=== PATIENT | male | born 1970 | race Two or more races ===

== ENCOUNTER 2019-03-01 07:35 | Inpatient (IN) | payer MEDICAID ==
[2019-03-01] MEDS ORDERED: OLANZapine DISINTEGR 5 MG TAB PO ONE (07:42)
--- NOTE | 2019-03-01 07:45 | EDPHY ---
H & P Time Seen by Provider: 03/01/19 07:38 HPI/ROS: CHIEF COMPLAINT: Paranoia HISTORY OF PRESENT ILLNESS: Patient is a 48-year-old homeless schizophrenic man who called an ambulance this morning because he was having racing thoughts. He felt like everybody was after him trying to harm him. He states that he is hearing voices. He states that he is supposed to take Haldol but has not taken it for the last day or 2. He did use methamphetamine and alcohol yesterday. He denies recent injury or trauma. He denies recent fevers or illness. No GI symptoms. He has been cooperative with EMS. Severity: Moderate Modifying factors: None REVIEW OF SYSTEMS: Constitutional: denies: chills, fever, recent illness, recent injury EENTM: denies: blurred vision, double vision, nose congestion Respiratory: denies: cough, shortness of breath Cardiac: denies: chest pain, irregular heart rate, lightheadedness, palpitations Gastrointestinal/Abdominal: denies: abdominal pain, diarrhea, nausea, vomiting, blood streaked stools Genitourinary: denies: dysuria, frequency, hematuria, pain Musculoskeletal: denies: joint pain, muscle pain Skin: denies: lesions, rash, jaundice, bruising Neurological: See HPI denies: headache, numbness, paresthesia, tingling, dizziness, weakness Hematologic/Lymphatic: denies: blood clots, easy bleeding, easy bruising Immunologic/allergic: denies: HIV/AIDS, transplant 10 systems reviewed and negative except as noted EXAM: GENERAL: Well-appearing, overweight and in moderate distress. HEAD: Atraumatic, normocephalic. EYES: Pupils equal round and reactive to light, extraocular movements intact, sclera anicteric, conjunctiva are normal. ENT: TMs normal, nares patent, oropharynx clear without exudates. Moist mucous membranes. NECK: Normal range of motion, supple without lymphadenopathy or JVD. LUNGS: Breath sounds clear to auscultation bilaterally and equal. No wheezes rales or rhonchi. HEART: Regular rate and rhythm without murmurs, rubs or gallops. ABDOMEN: Soft, nontender, normoactive bowel sounds. No guarding, no rebound. No masses appreciated. BACK: No CVA tenderness, no spinal tenderness, step-offs or deformities EXTREMITIES: Normal range of motion, no pitting or edema. No clubbing or cyanosis. NEUROLOGICAL: Cranial nerves II through XII grossly intact. Normal speech, normal gait. 5/5 strength, normal movement in all extremities, normal sensation , normal reflexes PSYCH: Normal rate of speech, paranoia, anxious SKIN: Warm, dry, normal turgor, no visible rashes or lesions. Source: Patient Exam Limitations: No limitations - Medical/Surgical History Hx Asthma: No Hx Chronic Respiratory Disease: No Hx Diabetes: No Hx Cardiac Disease: No Hx Renal Disease: No Hx Cirrhosis: No Hx Alcoholism: No Hx HIV/AIDS: No Other PMH: Schizophrenia, homelessness - Family History Significant Family History: No pertinent family hx - Social History Alcohol Use: Occasionally Drug Use: Other Constitutional: Initial Vital Signs Temperature (C) 37.3 C 03/01/19 07:35 Heart Rate 110 H 03/01/19 07:35 Respiratory Rate 18 03/01/19 07:35 Blood Pressure 160/105 H 03/01/19 07:35 O2 Sat (%) 91 L 03/01/19 07:35 O2 Delivery Mode Room Air Allergies/Adverse Reactions: No Known Allergies Allergy (Verified 03/01/19 13:58) Home Medications: Medication Instructions Recorded Meloxicam 15 mg PO DAILY 03/01/19 buPROPion XL [Wellbutrin Xl] 150 mg PO DAILY 03/01/19 Medical Decision Making ED Course/Re-evaluation: 11:00 a.m. the patient is medically clear. Awaiting psychiatric evaluation. 11:40 a.m. patient accepted to [facility] by nurse practitioner Willam. They are requesting Haldol. Differential Diagnosis: Partial list of the Differential diagnosis considered include but were not limited to; schizophrenia, polysubstance abuse and although unlikely based on the history and physical exam, I also considered head injury, infection. - Data Points Laboratory Results: Laboratory Results 03/01/19 07:58 03/01/19 07:58 03/01/19 03/01/19 03/01/19 07:58 07:58 07:42 WBC 7.57 10^3/uL 10^3/uL (3.80-9.50) RBC 5.04 10^6/uL 10^6/uL (4.40-6.38) Hgb 14.3 g/dL g/dL (13.7-17.5) Hct 42.1 % % (40.0-51.0) MCV 83.5 fL fL (81.5-99.8) MCH 28.4 pg pg (27.9-34.1) MCHC 34.0 g/dL g/dL (32.4-36.7) RDW 15.0 % % (11.5-15.2) Plt Count 164 10^3/uL 10^3/uL (150-400) MPV 10.2 fL fL (8.7-11.7) Neut % (Auto) 67.5 % % (39.3-74.2) Lymph % (Auto) 22.3 % % (15.0-45.0) Bartholomew % (Auto) 8.6 % % (4.5-13.0) Eos % (Auto) 0.3 % L % (0.6-7.6) Baso % (Auto) 0.8 % % (0.3-1.7) Nucleat RBC Rel Count 0.0 % % (0.0-0.2) Absolute Neuts (auto) 5.11 10^3/uL 10^3/uL (1.70-6.50) Absolute Lymphs (auto) 1.69 10^3/uL 10^3/uL (1.00-3.00) Absolute Monos (auto) 0.65 10^3/uL 10^3/uL (0.30-0.80) Absolute Eos (auto) 0.02 10^3/uL L 10^3/uL (0.03-0.40) Absolute Basos (auto) 0.06 10^3/uL 10^3/uL (0.02-0.10) Absolute Nucleated RBC 0.00 10^3/uL 10^3/uL (0-0.01) Immature Gran % 0.5 % % (0.0-1.1) Immature Gran # 0.04 10^3/uL 10^3/uL (0.00-0.10) Sodium 141 mEq/L mEq/L (135-145) Potassium 3.9 mEq/L mEq/L (3.5-5.2) Chloride 110 mEq/L mEq/L (97-110) Carbon Dioxide 20 mEq/l L mEq/l (22-31) Anion Gap 11 mEq/L mEq/L (6-14) BUN 10 mg/dL mg/dL (7-23) Creatinine 0.7 mg/dL mg/dL (0.7-1.3) Estimated GFR > 60 Glucose 108 mg/dL H mg/dL (70-100) Calcium 8.8 mg/dL mg/dL (8.5-10.4) Urine Opiates Screen NEGATIVE (NEGATIVE) Urine Barbiturates NEGATIVE (NEGATIVE) Ur Phencyclidine Scrn NEGATIVE (NEGATIVE) Ur Amphetamine Screen NEGATIVE (NEGATIVE) U Benzodiazepines Scrn NEGATIVE (NEGATIVE) Urine Cocaine Screen NEGATIVE (NEGATIVE) U Marijuana (THC) Screen NEGATIVE (NEGATIVE) Ethyl Alcohol < 10 mg/dL mg/dL (0-10) Medications Given: Discontinued Medications Haloperidol (Haldol) 10 mg PO ONCE ONE Stop: 03/01/19 11:37 Last Admin: 03/01/19 13:00 Dose: 10 mg Lorazepam (Ativan) 2 mg PO EDNOW ONE Stop: 03/01/19 11:38 Last Admin: 03/01/19 12:34 Dose: 2 mg Olanzapine (Zyprexa Zydis) 5 mg PO EDNOW ONE Stop: 03/01/19 07:43 Last Admin: 03/01/19 08:05 Dose: 5 mg Departure - Departure Disposition: [facility] IP Clinical Impression: Acute psychosis Condition: Fair
[2019-03-01 08:04] LABS: PLATELET COUNT 164 10^3/uL (150-400)
[2019-03-01] MEDS ORDERED: HALOPERIDOL 10 MG TAB PO ONE (11:36)
[2019-03-01] MEDS ORDERED: LORazepam 1 MG TAB PO ONE (11:37)
--- NOTE | 2019-03-01 12:46 | PDCONSULT ---
[employer] Note: THIS IS A HOSPITALIST HISTORY AND PHYSICAL CC: Suicidal ideation HPI: 48-year-old homeless male with history of schizophrenia presents to the emergency room after calling an ambulance for himself due to racing thoughts. He feels as though everyone was after him trying to harm him and he too feels like he could harm himself however he does not have a plan. He was to be on Haldol but has not taken this medication for 2 days. He is from [place] and reportedly left his psychiatric medications in [place]. In mid January he presented to [facility] with similar symptoms of paranoia and worsening auditory hallucinations. He was most recently seen in [facility] ED and discharged w/ recommendation to follow up with psychiatrist and/or primary care provider; he was discharged with Wellbutrin, Cymbalta, gabapentin and Haldol. He last used crystal methamphetamine and alcohol yesterday. He denies the following: Chest pain, palpitations, nausea, shortness of breath, fever, chills , constipation or diarrhea. PMH/PSH: Schizophrenia, anxiety, depression, liver cirrhosis, hepatitis-C Social: Homeless, currently visiting [employer] for 3 weeks from [place], [place]. 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 Smokes cannabis and crystal methamphetamine whenever he can get a hold of it, smokes cigarettes whenever he can get a hold of it (but refuses the need for a nicotine patch while here) and drinks alcohol 3-4 beers a day. Family: Mother had depression Review of Systems: All systems negative unless noted in HPI Physical Exam: Constitutional: "I need help." Mildly distressed cooperative male HEENT: PERRLA, EOMI, moist mucous membrane, hearing normal Cardiovascular: s1, s2 heard w/no murmurs, gallops or rubs Respiratory: CTAB GI: Active BS, no abdominal tenderness or palpable masses : No bladder fullness or tenderness Musculoskeletal: Full ROM, no pain w/movement Neurovascular: A&Ox3, PA[employer]MENT [employer]ER 2-12 intact Psych: Anxious, paranoia, normal speech Skin: Warm, no noted abrasions or rashes Heme/Lymph: No cervical lymphadenopathy Lab data was reviewed. White blood cell count 7.57, hemoglobin and hematocrit 14.3 and 42.1, platelet count 164, sodium 141, potassium 3.9, chloride 110, carbon dioxide 20, BUN/Cr: 10/0.7, tox screen negative, ETOH less than 10. A/P: 48-year-old homeless male with history of bipolar and schizophrenia presenting to the emergency room voluntarily with paranoia and worsening auditory hallucinations; he believes everyone is trying to harm him and he too believes he could harm himself however he does not have a plan. Reportedly left his psychiatric medications back in [place] where he plans to go back to after receiving appropriate care and being discharged from [facility]. He received the following medications while presenting to [facility] Emergency Room on February 23: Gabapentin, Haldol, Wellbutrin and trazodone but has not taken his Haldol for the last 2 days. His vital signs presenting to the emergency room are the following: Blood pressure 160/105, heart rate 110, respirations 18 , temperature 37.3 degrees, oxygen saturation on room air 91%. No medical concerns inhibiting pt to transfer to [facility]. #Paranoia/suicidal ideation: Transfer to [facility] for behavioral intervention assistance #Hypertension 2/2 acute paranoia and anxiety: No cardiac hx, asymptomatic. BP during [facility] visit was within normal range. Cont to monitor. If continuously elevated, would consider PRN hydralazine PO. #Tobacco/etoh/illicit drug cessation: Hx of cirrhosis and Hep C; counseled pt on cessation.
--- NOTE | 2019-03-01 13:04 | ASMTTCLDSP ---
[facility] Discharge Disposition Disposition: Answers: Admit Disposition Notes: Notes: Admit to [facility] Discharge Concerns/Recommendations: Notes: In consultation with [facility] ED physician, Grover Noguera MD and on-call psychiatric nurse practitioner, Clif Quarles APN, both concurred that pt appears to meet 27-65 criteria requiring psychiatric hospitalization as pt appears to be at risk of harm to self/gravely disabled due to a mental illness condition. Pt was read the Patient Rights and Responsibilities Statement on 03/01/19 at 1200 hrs, original placed on chart, and pt was given photocopy of Rights. Pt signed the Patient Rights. Pt was given the [facility] prohibited belongings list while in the ED. Was patient given the Answers: Yes Inpatient Behavioral Health Prohibited Belongings List while in the ED? For inpatient Clif Quarles APN admission, the following psychiatrist agreed to accept patient for admission to Behavioral Health ([facility]): Type of Hold: Answers: M1/72-hour Hold Hold initiated by: Answers: ED Physician Date Signed: 03/01/2019 01:04 PM Electronically Signed By:Teto Colon
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
[2019-03-01] MEDS ORDERED: MAGNESIUM HYDROXIDE 30 ML UDCUP PO PRN (14:47)
[2019-03-01] MEDS ORDERED: ACETAMINOPHEN 325 MG TAB PO PRN (14:47)
[2019-03-01] MEDS ORDERED: MAG HYDROX/AL HYDROX/SIMETH 30 ML UDCUP PO PRN (14:47)
[2019-03-01] MEDS ORDERED: OLANZapine DISINTEGR 10 MG TAB PO PRN (14:47)
[2019-03-01] MEDS ORDERED: NICOTINE POLACRILEX 2 MG GUM B PRN (14:47)
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
[2019-03-02] MEDS: LORazepam 0.5 MG TAB PO PRN ×2 (09:43→16:19)
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
[2019-03-02] MEDS: OLANZapine DISINTEGR 10 MG TAB PO SCH (20:41)
--- NOTE | 2019-03-03 18:01 | SOAPPROG ---
SOAP Progress Note Assessment/Plan: Assessment: 48-year-old homeless male with history of schizophrenia presents to the emergency room after calling an ambulance for himself due to racing thoughts. He feels as though everyone was after him trying to harm him and he too feels like he could harm himself however he does not have a plan. He was to be on Haldol but has not taken this medication for 2 days. He is from [place] and reportedly left his psychiatric medications in [place]. In mid January he presented to [facility] with similar symptoms of paranoia and worsening auditory hallucinations. He was most recently seen in [facility] ED and discharged w/ recommendation to follow up with psychiatrist and/or primary care provider; he was discharged with Wellbutrin, Cymbalta, gabapentin and Haldol. He last used crystal methamphetamine and alcohol yesterday. WEEKEND PLAN: 03/03/19 17:51 1. Patient has had multiple evaluations by medical providers (including at [facility] ED, [facility] ED) recently. He was given prescriptions for Wellbutrin , Cymbalta, gabapentin and haldol but has not taken any medications for last 2 days. Instead, patient has chosen to use crystal meth and drink alcohol. He has been given referrals for outpatient providers in order to establish MH services in [place], but patient has not followed up with these referrals. Patient's behavior over past several days since arriving in [place] would indicate he is most interested in having a place to stay rather than in psychiatric care. MD does not observe any signs of psychosis while observing patient in milieu and during his interactions with staff. He is not responding to internal/external stimuli, he is not paranoid and does not have IOR or bizarre thoughts. He is calm, cooperative and acting appropriately. 2. The patient does not require acute psychiatric care. He should be referred to outpatient clinics in the community where he can continue to receive services including medication management, case management and therapy. So far, the patient has demonstrated no desire or motivation to receive these services despite telling providers at 2 other facilities this is what he wanted. Based on his previous behavior, it's unlikely patient will comply with recommendations from treatment team when he leaves hospital. MD has advised of risks and potential adverse effects from continuing to use meth and alcohol, particularly for patients who have h/o psychotic sxs and problems with mood. Patient acknowledges he understands the risks. 3. MD and CM both recommend patient go to [facility] upon discharge and request assistance with housing and medical care if he chooses to stay in [facility]. 4. Likely to d/c Tuesday or Tuesday. Subjective: Patient presents anxious about what's going to happen when he leaves hospital. He says, "I don't know what to do." MD and CM explain that patient can seek assistance through [facility] which helps homeless clients with drug abuse social worker, housing, medical referrals and outpatient appointments. Patient denies any SI/HI today. He does not endorse any AH/VH, and there are no indications of any psychosis. Objective: Vital Signs Temp Pulse Resp BP Pulse Ox 36.4 C 64 14 127/72 H 93 03/03/19 06:00 03/03/19 06:00 03/03/19 06:00 03/03/19 06:00 03/03/19 06:00 MSE: Affect: Calm, quiet Mood: Anxious about d/c TP: Goal-directed TC: Denies any SI/HI Insight/Judgment: Poor - Time Spent With Patient Time Spent With Patient: 15" - Pending Discharge Pending Discharge Within 24 Hours: Yes Pending Discharge Date: 03/04/19 (Possible d/c tomorrow) Pending Discharge Time: 11:00 ICD10 Worksheet Patient Problems: Problems Problem Status Onset Acute psychosis Acute
[2019-03-03] MEDS: OLANZapine DISINTEGR 10 MG TAB PO SCH (21:18)
--- NOTE | 2019-03-04 15:54 | ASMTBHDC ---
Notes Note: Notes: Pt. reports feeling "depressed, trying to get back on track with meds and see my therapist". Pt. reports meeting with "Kelsy Garcia" with [facility]. Pt. reports he has an appointment with [facility], but does not know when. Pt. reports he slept "pretty well". Pt. reports getting enough to eat and attending groups. Pt. reports "not completely on all my meds". CC asked about SI/HI, pt. stated "just the ones that want to hurt me". Pt. denied AVH. Pt. reports paranoia that he is "scared of other people". Pt. stated he is willing to stay voluntarily, but is "not sure how long". Pt. stated he does not know where he will go upon discharge. Pt. stated he had an appointment for [facility] to [facility] living, but was admitted to the hospital and not able to go to the appointment. Pt. presents in bed, eye closed, calm, vague answers at times, and mostly cooperative. Staff report pt. sleeping 8 hours, being medication compliant and withdrawn to his room. CC to reach out to [facility] liaison for follow up appointments Date Signed: 03/04/2019 03:53 PM Electronically Signed By:Izabel Pierson
--- NOTE | 2019-03-04 19:08 | SOAPPROG ---
SOAP Progress Note Assessment/Plan: Assessment: 48-year-old homeless male with history of schizophrenia presents to the emergency room after calling an ambulance for himself due to racing thoughts. He feels as though everyone was after him trying to harm him and he too feels like he could harm himself however he does not have a plan. He was to be on Haldol but has not taken this medication for 2 days. He is from [place] and reportedly left his psychiatric medications in [place]. In mid January he presented to [facility] with similar symptoms of paranoia and worsening auditory hallucinations. He was most recently seen in [facility] ED and discharged w/ recommendation to follow up with psychiatrist and/or primary care provider; he was discharged with Wellbutrin, Cymbalta, gabapentin and Haldol. He last used crystal methamphetamine and alcohol yesterday. WEEKEND PLAN: 03/03/19 17:51 1. Patient has had multiple evaluations by medical providers (including at [facility] ED, [facility] ED) recently. He was given prescriptions for Wellbutrin , Cymbalta, gabapentin and haldol but has not taken any medications for last 2 days. Instead, patient has chosen to use crystal meth and drink alcohol. He has been given referrals for outpatient providers in order to establish MH services in [place], but patient has not followed up with these referrals. Patient's behavior over past several days since arriving in [place] would indicate he is most interested in having a place to stay rather than in psychiatric care. MD does not observe any signs of psychosis while observing patient in milieu and during his interactions with staff. He is not responding to internal/external stimuli, he is not paranoid and does not have IOR or bizarre thoughts. He is calm, cooperative and acting appropriately. 2. The patient does not require acute psychiatric care. He should be referred to outpatient clinics in the community where he can continue to receive services including medication management, case management and therapy. So far, the patient has demonstrated no desire or motivation to receive these services despite telling providers at 2 other facilities this is what he wanted. Based on his previous behavior, it's unlikely patient will comply with recommendations from treatment team when he leaves hospital. MD has advised of risks and potential adverse effects from continuing to use meth and alcohol, particularly for patients who have h/o psychotic sxs and problems with mood. Patient acknowledges he understands the risks. 3. MD and CM both recommend patient go to [facility] upon discharge and request assistance with housing and medical care if he chooses to stay in [facility]. 4. Likely to d/c Tuesday or Tuesday. 03/04/19 19:04 1. Patient isolated in his room most of the day. 2. Patient said he did follow up with [facility] for a registration appointment. He supposedly has a case finishing machine adjuster, nicolasa Tierney. CM to confirm tomorrow. 3. Patient says he is willing to sign in voluntarily when his hold expires today. 4. MD recommends discharge tomorrow with f/u appt with his providers at [facility]. Subjective: Patient presents cooperative, pleasant, in no acute distress. He says he's in "bad shape" because he doesn't know "what to do" about his future. He perseverates on having no place to stay and no job. He is willing to go to [facility] and get assistance with housing and social science professor. He says he's already been referred there by other medical providers in recent weeks, but just hasn't gone. Patient wants to stay another night in hospital. He denies any SI/HI and reports no AH/VH. Objective: Vital Signs Temp Pulse Resp BP Pulse Ox 36.6 C 99 20 116/56 L 94 03/04/19 06:00 03/04/19 06:00 03/04/19 06:00 03/04/19 06:00 03/04/19 06:00 MSE: Affect: Euthymic Mood: "Don't know" TP: Linear, goal-directed TC: Denies any SI/HI, no paranoia Insight/Judgment: Fair - Time Spent With Patient Time Spent With Patient: 15" - Pending Discharge Pending Discharge Within 24 Hours: Yes Pending Discharge Within 48 Hours: No Pending Discharge Date: 03/05/19 (Likely d/c tomorrow) Pending Discharge Time: 11:00 ICD10 Worksheet Patient Problems: Problems Problem Status Onset Acute psychosis Acute
[2019-03-04] MEDS: OLANZapine DISINTEGR 10 MG TAB PO SCH (20:59)
[2019-03-05 06:52] VITALS: BP 111/71
--- NOTE | 2019-03-05 12:03 | BDS ---
[f rep st] BEHAVIORAL HEALTH DISCHARGE SUMMARY REASON FOR ADMISSION: From the ED note dated 03/01/2019, the patient presented to the emergency room with paranoid thoughts of everyone wanting to harm him. The patient reported auditory hallucinations. The patient reported nonadherence to psychiatric medications. The patient was admitted involuntarily and on an M1 hold due to being gravely disabled due to a mental illness. Patient was admitted for safety, crisis stabilization, and medication management. ADMITTING DIAGNOSES: 1. Schizophrenia. 2. Rule out substance-induced psychosis. 3. Homelessness. ADMISSION PHYSICAL EXAM: Patient was seen on 03/01/2019 for history and physical consultation for medical clearance for inpatient psychiatric hospitalization and treatment. The patient was medically cleared for inpatient psychiatric hospitalization and treatment. For further details, please refer to benefits consultant note dated 03/01/2019. ADMISSION LABS: 1. CBC within normal limits except eosinophils were low at 0.3, absolute eosinophils were low at 0.02. 2. BMP within normal limits except carbon dioxide was low at 20, glucose was elevated at 108. 3. Hemoglobin A1c was within normal limits at 5.1. 4. Liver function within normal limits except AST was elevated at 88, ALT elevated at 92, alkaline phosphatase elevated at 222, and total protein elevated at 8.3. Non-HDL cholesterol was low at 89. 5. Toxicology screen negative for all substances that were screened and negative for ethyl alcohol. MAJOR PROCEDURES OR TESTS: None. HOSPITAL COURSE: The most prominent symptoms and behaviors while the patient was here were reports of auditory hallucinations and the patient was socially withdrawn. Treatment modalities utilized were milieu and group therapy. Zyprexa Zydis 10 mg p.o. q.h.s. was started to target psychosis symptoms, was tolerated with no report of side effects and with good response. Patient has improved considerably with no signs of psychiatric symptoms and no psychiatric symptoms expressed. Patient reports he has improved since admission, states to be in stable condition, feels safe to discharge, and he contracts for safety. Patients response to treatment was good. There were no adverse or unexpected results of treatment. The patient was safe throughout stay, active in treatment , engaged in groups, and was appropriate with staff. Patient met with treatment team prior to discharge to assess readiness to discharge and review discharge plan. The treatment team consensus is the patient in stable condition , has a safe discharge plan, and is ready to discharge today. CONDITION AT DISCHARGE: Patient is in stable condition and is no longer a danger to self or others, and is not gravely disabled due to mental illness. Patient is no longer in need of inpatient level of care, and can be safely and effectively treated within the community. The patients level of risk at time of discharge is low. MSE: The patient is casually dressed and with good hygiene , and looks stated age. Patient is sitting, posture is upright, and position is relaxed. Patient appears awake, alert, and responds appropriately and reasonably during interview. Patient is engaged, relates well to interviewer, and emotional facial expression is appropriate to situation and changes appropriately with topic. Patient is cooperative, makes comfortable eye contact , and movements are voluntary, deliberate, coordinated, and smooth and even with no inappropriate movements. Patient makes laryngeal sounds effortlessly and shares conversation appropriately; pace of conversation is appropriate, and stream of talking is fluent; articulation is clear and understandable; word choice is effortless and appropriate for education level; completes sentences, occasionally pausing to think; rate and volume are appropriate for interview and setting. Patient reports mood as euthymic. Patients affect is stable with full variable range, congruent with mood, and appropriate to speech and circumstances. Patient has linear and logical thinking, with no loose associations, tangential thought, thought blocking, concrete thinking, or any other signs of formal thought disorder. Patient denies suicidal and homicidal ideation, and denies hallucinations and delusions. Patient appears to be a reliable historian with sound judgement and good insight into current condition. Patient has no apparent dysfunction in recent or remote memory noted , and no evidence of gross cognitive dysfunction noted at any point during the interview. DISCHARGE DIAGNOSES: 1. Schizophrenia. 2. Rule out substance-induced psychosis. 3. Homelessness. CURRENT MEDICATIONS: After reviewing options, risks, and benefits with the patient, patient agrees to continue Zyprexa 10 mg p.o. q.h.s. DISPOSITION: The patient left hospital independently and voluntarily with plans to go to the homeless senior living in [place], [place]. FOLLOWUP: sterile process coordinator reports the appropriate outpatient follow-up services have been established and outpatient appointments have been scheduled. The patient received written instructions with times and dates of outpatient follow-up appointments. The following follow-up recommendations were provided to the patient at discharge: Continue psychotropic medications as prescribed and attend appointments as scheduled. Report any side effects to a psychiatric outpatient provider, a primary care provider, or other health wound care physician. Address any questions or problems concerning the psychotropic medications with a psychiatric outpatient provider, a primary care provider, or other health wound care physician. Contact [facility] or [email or web address], or go to the nearest emergency room, if you are ever a danger to yourself/others, or unable to care for yourself. As soon as possible, establish a routine medication management treatment with a psychiatric provider, establish routine therapy appointments, and follow-up with a primary care provider. LEGAL COURSE: The patient was admitted on an M1 hold for involuntary inpatient psychiatric hospitalization and treatment. The patient was discharged today independently and voluntarily. ATTITUDE AT TIME OF DISCHARGE: The patients attitude was positive at time of discharge, and patient reports looking forward to discharging today. The patient reports he feels safe to discharge, is no longer a danger to himself or others, is in stable condition, and contracts for safety. Patient states he will continue medications as prescribed, and establish medication management treatment with an outpatient provider after discharge. Patient reports he understands the information that has been provided to him, and he understands, accepts, and agrees to psychotropic medications. Patient describes internal protective factors as the coping skills he has learned while hospitalized here, and he plans to continue to practice these coping skills after discharge. LABS AND RADIOLOGY STUDIES: There were no pending labs or studies at time of discharge. ADVANCE DIRECTIVES: There were no advance directives on file, and patient was full code during this hospitalization. The following psychotropic medication treatment informed consent and recommendations were provided to the patient at time of discharge. Patient reports he understands, accepts, and agrees to the information that has been provided. PSYCHOTROPIC MEDICATION TREATMENT INFORMED CONSENT and RECOMMENDATIONS: Review nature of condition, diagnosis, and prognosis. Review nature and purpose of psychotropic medication treatment. Review type of psychotropic medications being prescribed. Review risk and benefits of psychotropic medication treatment. Review probable length of time will need to take medications. Review risk and benefits of not undergoing psychotropic medication treatment. Review alternative treatments to psychotropic medications. Review psychotropic medications contraindications, side effects, and importance of reporting any side effects to a psychiatric provider, primary care provider, or other health wound care physician. Review importance of asking a psychiatric provider or primary care provider any questions or problems concerning the psychotropic medications. Review safety plan and the importance to contact [facility] or [employer] , or go to the nearest emergency room, if ever a danger to yourself/others, or unable to care for yourself. Recommend upon discharge to establish routine medication management treatment with a psychiatric provider, establish routine therapy appointments, and follow-up with a primary care provider. Verify patient understands, accepts, and agrees to the information that has been provided. /[id number]/MODL MTDD
== END 2019-03-05 13:15 | disposition home or self-care (01) | DRG 750 ==
LOC: BBEH 14:05
PROVIDERS: ADMIT Registered Nurse; ATTEND Psychiatry & Neurology Psychiatry
DX: F20.9 Schizophrenia, unspecified (principal); F10.959 Alcohol use, unspecified with alcohol-induced psychotic disorder, unspecified; F15.959 Other stimulant use, unspecified with stimulant-induced psychotic disorder, unspecified; Z59.0 Homelessness
CPT/HCPCS: 80305; G0480

== ENCOUNTER 2019-03-10 18:07 | Inpatient (IN) | payer MEDICAID ==
--- NOTE | 2019-03-10 18:14 | EDPHY ---
H & P Time Seen by Provider: 03/10/19 18:07 HPI/ROS: CHIEF COMPLAINT: Chest pain, an overdose HISTORY OF PRESENT ILLNESS: EMS initially was called for chest pain. Patient denies chest pain on arrival. Apparently as they were evaluating him he said he had taken overdose for depression because his mother recently , and became somnolent on the way in. Arrives emergent. Patient says he does not have chest pain now. No associated symptoms such as diaphoresis nausea or radiation. Denies cough or shortness of breath. REVIEW OF SYSTEMS: Eye: no change in vision ENT: no sore throat Cardiac: HPI Pulmonary: no cough or SOB Abdomen: no vomiting, diarrhea, abdominal pain Musculoskeletal: no back pain Skin: no rash Neuro: no headache Constitutional: no fever : no urinary symptoms A comprehensive 10 point review of systems is otherwise negative aside from elements mentioned in the history of present illness. PAST MEDICAL HISTORY: Hospitalist consultation dated 03/01/2019 personally reviewed includes depression, hepatitis-C, schizophrenia, cirrhosis. Recent left knee surgery. Social history: Visiting from [place], says his mother recently General Appearance: Patient is intermittently alert and then somnolent. He is lying in the bed cooperative at this point. Eyes: No scleral icterus. Pupils reactive. ENT, Mouth: Normal mucous membranes. Respiratory: Normal respiratory effort, breath sounds equal, lungs are clear to auscultation. Cardiovascular: Regular rate and rhythm. Tachycardic. Gastrointestinal: Abdomen is soft and non tender. Neurological: Follows commands, speech slightly slurred, moves all extremities. Skin: Warm and dry, no rashes. No laceration or bruising. Musculoskeletal: No peripheral edema. Psychiatric: See HPI. Emergency Department course/MDM: Patient placed on a mental health hold by myself for overdose and suicidal ideation relayed by EMS. EKG chest x-ray and troponin for chest pain. He said he took his medications in overdose today including Xanax, Dalmane, extended release Wellbutrin, and gabapentin. Serial exams, admission to ICU on a mental health hold with extended release Wellbutrin ingestion. Chest x-ray negative acute per my interpretation. 0: Discussed with Betsy. D-dimer added with chest pain and recent knee surgery. 1854: [facility] consult, admission 24 hours ICU with extended release Wellbutrin, case # [id number]. 1951: D-dimer less than 0.5, low pretest probability for pulmonary embolism. Smoking Status: Former smoker Constitutional: Initial Vital Signs Temperature (C) 37.3 C 03/10/19 18:29 Heart Rate 101 H 03/10/19 18:29 Respiratory Rate 18 03/10/19 18:29 Blood Pressure 106/68 03/10/19 18:29 O2 Sat (%) 92 03/10/19 18:29 O2 Delivery Mode Room Air Allergies/Adverse Reactions: No Known Allergies Allergy (Verified 03/01/19 13:58) Home Medications: Medication Instructions Recorded Dalmane 03/10/19 Gabapentin 03/10/19 Ringling 5-325 Tablet 03/10/19 Wellbutrin 150mg XL 03/10/19 Xanax 03/10/19 Medical Decision Making - Diagnostics EKG Interpretation: 12-lead EKG interpreted by me; official reading is in computer system. My interpretation is sinus tachycardia rate 100 no acute ischemic changes Imaging Results: Imaging Impressions Chest X-Ray 03/10/19 18:16 Impression: 1. Mild prominence of the central vascularity without cardiomegaly. 2. Rounded right paratracheal density above the clifford causing mild tracheal stenosis. This may represent a vascular structure or lymph node. Recommend comparison with any prior imaging if available. If unavailable, would consider either follow-up chest radiograph in one to [address] Imaging: I viewed and interpreted images myself Critical Care Time: Critical care time spent by me, Dr. Escalante, exclusively with the care of this patient was 30 minutes, exclusive of PA or REWORK MACHINE OPERATOR time and exclusive of separate procedures. The organ system at risk was metabolic toxicology and I ordered multiple diagnostics, consultation with poison Center, serial examinations to stabilize the patient and prevent worsening of the patient's condition. - Data Points Laboratory Results: Laboratory Results 03/10/19 18:15 03/10/19 18:15 03/10/19 03/10/19 03/10/19 18:21 18:15 18:15 WBC RBC Hgb Hct MCV MCH MCHC RDW Plt Count MPV Neut % (Auto) Lymph % (Auto) Jennings % (Auto) Eos % (Auto) Baso % (Auto) Nucleat RBC Rel Count Absolute Neuts (auto) Absolute Lymphs (auto) Absolute Monos (auto) Absolute Eos (auto) Absolute Basos (auto) Absolute Nucleated RBC Immature Gran % Immature Gran # D-Dimer 0.40 ug/mLFEU ug/mLFEU (0.00-0.50) Sodium 143 mEq/L mEq/L (135-145) Potassium 4.5 mEq/L mEq/L (3.5-5.2) Chloride 111 mEq/L H mEq/L (97-110) Carbon Dioxide 18 mEq/l L mEq/l (22-31) Anion Gap 14 mEq/L mEq/L (6-14) BUN 13 mg/dL mg/dL (7-23) Creatinine 0.7 mg/dL mg/dL (0.7-1.3) Estimated GFR > 60 Glucose 213 mg/dL H mg/dL (70-100) Calcium 8.7 mg/dL mg/dL (8.5-10.4) POC Troponin I 0.01 ng/mL ng/mL (0.00-0.08) Salicylates < 1.0 mg/dL L mg/dL (2.0-20.0) Acetaminophen < 10 mcg/mL L mcg/mL (10-30) Ethyl Alcohol 249 mg/dL H mg/dL (0-10) 03/10/19 18:15 WBC 17.33 10^3/uL H 10^3/uL (3.80-9.50) RBC 4.81 10^6/uL 10^6/uL (4.40-6.38) Hgb 13.4 g/dL L g/dL (13.7-17.5) Hct 41.0 % % (40.0-51.0) MCV 85.2 fL fL (81.5-99.8) MCH 27.9 pg pg (27.9-34.1) MCHC 32.7 g/dL g/dL (32.4-36.7) RDW 14.7 % % (11.5-15.2) Plt Count 210 10^3/uL 10^3/uL (150-400) MPV 10.6 fL fL (8.7-11.7) Neut % (Auto) 82.0 % H % (39.3-74.2) Lymph % (Auto) 9.4 % L % (15.0-45.0) Jennings % (Auto) 7.4 % % (4.5-13.0) Eos % (Auto) 0.0 % L % (0.6-7.6) Baso % (Auto) 0.2 % L % (0.3-1.7) Nucleat RBC Rel Count 0.0 % % (0.0-0.2) Absolute Neuts (auto) 14.22 10^3/uL H 10^3/uL (1.70-6.50) Absolute Lymphs (auto) 1.63 10^3/uL 10^3/uL (1.00-3.00) Absolute Monos (auto) 1.28 10^3/uL H 10^3/uL (0.30-0.80) Absolute Eos (auto) 0.00 10^3/uL L 10^3/uL (0.03-0.40) Absolute Basos (auto) 0.03 10^3/uL 10^3/uL (0.02-0.10) Absolute Nucleated RBC 0.00 10^3/uL 10^3/uL (0-0.01) Immature Gran % 1.0 % % (0.0-1.1) Immature Gran # 0.17 10^3/uL H 10^3/uL (0.00-0.10) D-Dimer Sodium Potassium Chloride Carbon Dioxide Anion Gap BUN Creatinine Estimated GFR Glucose Calcium POC Troponin I Salicylates Acetaminophen Ethyl Alcohol Medications Given: Discontinued Medications Sodium Chloride (Ns) 1,000 mls @ 0 mls/hr IV EDNOW ONE; Wide Open PRN Reason: Protocol Stop: 03/10/19 18:55 Last Admin: 03/10/19 18:54 Dose: 1,000 mls Sodium Chloride (Ns) 1,000 mls @ 0 mls/hr IV EDNOW ONE; Wide Open PRN Reason: Protocol Stop: 03/10/19 19:04 Last Admin: 03/10/19 19:10 Dose: 1,000 mls Lorazepam (Ativan Injection) 2 mg IVP ONCE ONE Stop: 03/10/19 19:06 Last Admin: 03/10/19 19:19 Dose: 2 mg Point of Care Test Results: Chemistry 03/10/19 18:21 POC Troponin I 0.01 ng/mL ng/mL (0.00-0.08) Departure - Departure Disposition: [facility] Acute Clinical Impression: Suicidal ideation Deliberate medication overdose Qualifiers: Encounter type: initial encounter Qualified Code(s): T50.902A - Poisoning by unspecified drugs, medicaments and biological substances, intentional self-harm , initial encounter Alcohol intoxication Qualifiers: Complication of substance-induced condition: uncomplicated Qualified Code(s): F10.920 - Alcohol use, unspecified with intoxication, uncomplicated Chest pain Qualifiers: Chest pain type: unspecified Qualified Code(s): R07.9 - Chest pain, unspecified Condition: Fair
--- NOTE | 2019-03-10 18:23 | CPEKG ---
Test Reason : OPEN Blood Pressure : / mmHG Vent. Rate : 100 BPM Atrial Rate : 100 BPM P-R Int : 141 ms QRS Dur : 088 ms QT Int : 356 ms P-R-T Axes : 061 017 050 degrees QTc Int : 460 ms Sinus tachycardia Confirmed by Marciano Renteria ([id number]) on 03/10/2019 6:22:56 PM Referred By: MARCIANO RENTERIA Confirmed By:Marciano Renteria
[2019-03-10 18:25] LABS: PLATELET COUNT 210 10^3/uL (150-400)
[2019-03-10] MEDS ORDERED: NS 1,000 ML IV ONE ×2 (18:54→19:03)
[2019-03-10] MEDS ORDERED: ONDANSETRON DISINTEGRATING 4 MG TAB PO PRN (19:05)
[2019-03-10] MEDS ORDERED: HYDROmorphONE/DILAUDID 1 MG/ML INJ IVP PRN (19:05)
[2019-03-10] MEDS ORDERED: LORazepam 2 MG/ML INJ IVP ONE (19:05)
[2019-03-10] MEDS ORDERED: ACETAMINOPHEN 325 MG TAB PO PRN (19:05)
[2019-03-10] MEDS ORDERED: ONDANSETRON 4 MG/2 ML VIAL IVP PRN (19:05)
[2019-03-10] MEDS ORDERED: HYDROCODONE/APAP 5/325 TAB PO PRN (19:05)
[2019-03-10] MEDS ORDERED: oxyCODONE IR 5 MG TAB PO PRN (19:05)
[2019-03-10] MEDS ORDERED: PROMETHAZINE HCL 25 MG/ML INJ IVP PRN (19:05)
[2019-03-10] MEDS ORDERED: NS 1,000 ML IV SCH (19:15)
--- NOTE | 2019-03-10 21:01 | PDGENHP ---
History and Physical - Chief Complaint suicidal/s/p intentional overdose - History of Present Illness 48 yo M recently moved here from [place] presenting for the second time this month with psychiatric complaints and today s/p suicide attempt by overdose. Patient states that he has a hx of schizophrenia, bipolar and anxiety as well as hepatitis C and cirrhosis and states that he has been suicidal for the last several months at least. He states that he tried to kill himself recently by jumping off of a bridge, and has tried to kill himself many times in the past by various methods--tying sheet around his neck and jumping out a window, overdose, jumping into traffic. He states this has all been much worse for the last 4 months and he attributes that to the of his mother, he states she was his only support in the world and without her he no longer wants to live. He states that if he gets a chance to kill himself here in the hospital he will do so, and that if a spectroscopist comes by with a gun, he will grab it and shoot himself in the head. He says he is determined to this time. He denies any current hallucinations, although that is what he was complaining of last week. He states he has some nausea and a lot of anxiety but denies other physical complaints other than 'feeling numb.' He states that if we discharge him he will kill himself for sure. History Information - Allergies/Home Medication List Allergies/Adverse Reactions: No Known Allergies Allergy (Verified 03/01/19 13:58) Home Medications: Dalmane 03/10/19 [Last Taken Unknown] Gabapentin 03/10/19 [Last Taken Unknown] [place] 5-325 Tablet 03/10/19 [Last Taken Unknown] Wellbutrin 150mg XL 03/10/19 [Last Taken Unknown] Xanax 03/10/19 [Last Taken Unknown] I have personally reviewed and updated: family history, medical history, social history, surgical history - Past Medical History liver disease (reports hep c and cirrhosis), psychiatric history (reports schizophrenia, bipolar, anxiety and multiple suicide attempts as HPI) Additional medical history: polysubstance abuse--most recently meth, alcohol but reports prior hx of multiple other things as well - Surgical History Reports: no pertinent surgical hx - Family History Positive for: non-pertinent - Social History Smoking Status: Former smoker Alcohol Use: Heavy Drug Use: Marijuana, Other (meth recently, ) Additional social history: currently homeless, was in alf in [place] recently , reports in and out of alf most of his life Review of Systems Review of Systems: ROS: 10pt was reviewed & negative except for what was stated in HPI & below Physical Exam Physical Exam: Temp Pulse Resp BP Pulse Ox 36.9 C 102 H 18 124/76 H 92 03/10/19 19:52 03/10/19 19:46 03/10/19 19:46 03/10/19 19:46 03/10/19 19:46 Constitutional: appears nourished Eyes: PERRL Ears, Nose, Mouth, Throat: moist mucous membranes, hearing normal Cardiovascular: no murmur, rub, or gallop, tachycardia, No edema Respiratory: no respiratory distress, no rales or rhonchi Gastrointestinal: normoactive bowel sounds, soft, non-tender abdomen Genitourinary: no bladder tenderness Skin: warm, normal color Musculoskeletal: full muscle strength Neurologic: AAOx3 Psychiatric: anxious, suicidal ideation, agitated Lab Data & Imaging Review 03/10/19 18:15 03/10/19 18:15 WBC 17.33 10^3/uL (3.80-9.50) H 03/10/19 18:15 RBC 4.81 10^6/uL (4.40-6.38) 03/10/19 18:15 Hgb 13.4 g/dL (13.7-17.5) L 03/10/19 18:15 Hct 41.0 % (40.0-51.0) 03/10/19 18:15 MCV 85.2 fL (81.5-99.8) 03/10/19 18:15 MCH 27.9 pg (27.9-34.1) 03/10/19 18:15 MCHC 32.7 g/dL (32.4-36.7) 03/10/19 18:15 RDW 14.7 % (11.5-15.2) 03/10/19 18:15 Plt Count 210 10^3/uL (150-400) 03/10/19 18:15 MPV 10.6 fL (8.7-11.7) 03/10/19 18:15 Neut % (Auto) 82.0 % (39.3-74.2) H 03/10/19 18:15 Lymph % (Auto) 9.4 % (15.0-45.0) L 03/10/19 18:15 Louisa % (Auto) 7.4 % (4.5-13.0) 03/10/19 18:15 Eos % (Auto) 0.0 % (0.6-7.6) L 03/10/19 18:15 Baso % (Auto) 0.2 % (0.3-1.7) L 03/10/19 18:15 Nucleat RBC Rel Count 0.0 % (0.0-0.2) 03/10/19 18:15 Absolute Neuts (auto) 14.22 10^3/uL (1.70-6.50) H 03/10/19 18:15 Absolute Lymphs (auto) 1.63 10^3/uL (1.00-3.00) 03/10/19 18:15 Absolute Monos (auto) 1.28 10^3/uL (0.30-0.80) H 03/10/19 18:15 Absolute Eos (auto) 0.00 10^3/uL (0.03-0.40) L 03/10/19 18:15 Absolute Basos (auto) 0.03 10^3/uL (0.02-0.10) 03/10/19 18:15 Absolute Nucleated RBC 0.00 10^3/uL (0-0.01) 03/10/19 18:15 Immature Gran % 1.0 % (0.0-1.1) 03/10/19 18:15 Immature Gran # 0.17 10^3/uL (0.00-0.10) H 03/10/19 18:15 D-Dimer 0.40 ug/mLFEU (0.00-0.50) 03/10/19 18:15 Sodium 143 mEq/L (135-145) 03/10/19 18:15 Potassium 4.5 mEq/L (3.5-5.2) 03/10/19 18:15 Chloride 111 mEq/L (97-110) H 03/10/19 18:15 Carbon Dioxide 18 mEq/l (22-31) L 05/11/19 18:15 Anion Gap 14 mEq/L (6-14) 03/10/19 18:15 BUN 13 mg/dL (7-23) 03/10/19 18:15 Creatinine 0.7 mg/dL (0.7-1.3) 03/10/19 18:15 Estimated GFR > 60 03/10/19 18:15 Glucose 213 mg/dL (70-100) H 03/10/19 18:15 Calcium 8.7 mg/dL (8.5-10.4) 03/10/19 18:15 POC Troponin I 0.01 ng/mL (0.00-0.08) 03/10/19 18:21 Salicylates < 1.0 mg/dL (2.0-20.0) L 03/10/19 18:15 Acetaminophen < 10 mcg/mL (10-30) L 03/10/19 18:15 Ethyl Alcohol 249 mg/dL (0-10) H 03/10/19 18:15 Visualized and Interpreted Chest x-ray results: Yes Chest X-Ray results: no infiltrate Visualized and Interpreted EKG results: Yes EKG Interpretation: Positive for: normal sinsus rhythm EKG additional interpertation: sinus tach Assessment & Plan Assessment: Alcohol intoxication (Acute) Chest pain (Acute) Deliberate medication overdose (Acute) Suicidal ideation (Acute) 48 yo M with PMH of schizophrenia and bipolar d/o presenting s/p poly drug overdose as suicide attempt # poly drug overdose: including xanax, wellbutrin XR, gabapentin and dalmane as a suicide attempt. He reportedly became somnolent on arrival by paramedics but on my evaluation patient is agitated and very much alert and anxious. Unclear quantities of pills taken and patient not clearly a reliable historian, regardless with reports of overdose on long acting wellbutrin patient will need monitoring and seizure precautions at least overnight given long half life. He is currently on M1 hold as next, monitoring on tele in ICU. # suicidal ideation/suicide attempt: patient states he is still very disappointed that he did not succeed in dying and that he will absolutely try to kill himself again the next chance he gets, on M1 hold, suicide precautions, TLC to evaluate when medically cleared # schizophrenia/bipolar d/o: this is per patients report, recent hospitalization on and some of that questionable--perhaps substance induced psychosis--however patient did seem to improve on zyprexa # hep c/cirrhosis: reported by patient, does not have clear stigmata of chronic liver disease and recent LFTS with mild transaminitis only, will repeat LFTs and recommend he establish care with PCP if he plans to remain in [place] # IP status, high risk given overdose and active suicidality requiring ICU stay Patient new to my care. Old records reviewed and summarized as above. Care plan reviewed with ER doctor as above.
[2019-03-10] MEDS: LORazepam 2 MG/ML INJ IVP PRN (22:59)
[2019-03-11 05:25] LABS: PLATELET COUNT 148 10^3/uL (150-400)
--- NOTE | 2019-03-11 09:30 | PDMN ---
Medical Necessity Medical necessity: [facility] M153 Drug Ingestion or Overdose, A-1 day: 48 yo w/ intentional overdose on Xanax, wellbutrin, gabapentin and dalmane as suicide attempt. Admit IP status ICU on M1 hold. Meets [facility] IP criteria for OD w/ psych risk status not acceptable for OP management.
[2019-03-11] MEDS: LORazepam 2 MG/ML INJ IVP PRN (09:41)
--- NOTE | 2019-03-11 12:36 | PDDCSUM ---
Discharge Summary Discharge Summary: 48 yo M with PMH of schizophrenia and bipolar d/o admitted with poly drug overdose as suicide attempt. Substances included xanax, wellbutrin XR, gabapentin and dalmane. Unclear quantities. He is not a reliable historian. He was admitted to the ICU. From a CV perspective he did well. There was not seizure activity noted. He is currently hallucinating. He need psych inpatient. He is medically cleared. DDx: # poly drug overdose: including xanax, wellbutrin XR, gabapentin and dalmane as a suicide attempt # suicidal ideation/suicide attempt # schizophrenia/bipolar d/o # hep c/cirrhosis: reported by patient, does not have clear stigmata of chronic liver disease and recent LFTS with mild transaminitis only Exam: NAD AAOX3 RRR CTA B S/NT/ND NO EDEMA + HALLUCINATIONS (HEARING VOICES) + SI MEDS: SEE MED REC TOTAL TIME SPENT ON D/C IS 35 MINS
--- NOTE | 2019-03-11 15:56 | ASMTCMCOM ---
CM Note CM Note Notes: Pt admitted for overdose suicide attempt and placed on M1Hold. Pt recently moved to [place] from [place], is homeless and has hx of schizophrenia, bipolar and anxiety as weel as hepatitis C and cirrhosis. Pt has had multiple suicide attempts in the last four months since his mother and was discharged from [facility] inpatient behavioral health earlier this month. Pt then told [facility] today that his mother was "passing away". Pt has history of legal long term and aggression, though is not aggressive now. Pt deemed medically stable today and M1 Hold lifted. [facility] evaluated and recommended psych consult be ordered for tomorrow due to complex nature of pt's psychiatric history and potential difficulty in placement. Pt is connected and active with [facility] and [facility] and has a job. Email sent to RACHAEL CALDERA at [facility] notifying her of pt's admission. Pt has completed intake with [facility] and has med eval scheduled for 03/13 with them as well. [facility] also notified of pt's admission. CM to follow. D/C plan: TBD [facility] v [facility] Date Signed: 03/11/2019 03:55 PM Electronically Signed By:Paulette Sandoval
--- NOTE | 2019-03-11 17:00 | ASMTTCLDSP ---
TLC Discharge Disposition Disposition: Answers: Admit Discharge Concerns/Recommendations: Notes: In consultation with [facility] hospitalist, Dr. Bermudez and [facility] on-call psychiatrist, Luis Mejia MD, both concurred that pt appears to meet 27-65 criteria requiring psychiatric hospitalization as the patient appears to be an imminent risk of harm to self due to a mental illness condition. The patient was read the Patient Rights and Responsibilities Statement (placed on chart) and given photocopy of Rights. The patient was given the 3[facility] prohibited belongings list while in the ED. Was patient given the Answers: Yes Inpatient Behavioral Health Prohibited Belongings List while in the ED? For inpatient Luis Mejia MD admission, the following psychiatrist agreed to accept patient for admission to Behavioral Health ([facility]): Type of Hold: Answers: M1/72-hour Hold Hold initiated by: Answers: ED Physician Date Signed: 03/11/2019 04:18 PM Electronically Signed By:Nataliia Sal
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
--- NOTE | 2019-03-11 17:15 | ASMTLCPROG ---
Notes Note: Notes: This contract writer completed BH pre-authorization with [facility] disease case manager, Shaina, who authorized three days from the through the ; reference #[id number]. Date Signed: 03/11/2019 05:14 PM Electronically Signed By:Nataliia Sal
[2019-03-11 19:23] VITALS: BP 122/74
[2019-03-11] MEDS ORDERED: OLANZapine 10 MG TAB PO SCH (21:00)
== END 2019-03-11 19:50 | DRG 753 ==
LOC: EDUNIT# → F2N 19:55
PROVIDERS: ADMIT Internal Medicine; ATTEND Internal Medicine
DX: F31.9 Bipolar disorder, unspecified (principal); R45.851 Suicidal ideations; F20.9 Schizophrenia, unspecified; Z76.5 Malingerer [conscious simulation]; B19.20 Unspecified viral hepatitis C without hepatic coma; K74.60 Unspecified cirrhosis of liver; Z59.0 Homelessness
CPT/HCPCS: 80305; 84484-ER; 96374; G0480; J2060

== ENCOUNTER 2019-03-11 20:00 | Inpatient (IN) | payer MEDICAID ==
[2019-03-11] MEDS ORDERED: NICOTINE POLACRILEX 2 MG GUM B PRN (20:39)
[2019-03-11] MEDS ORDERED: MAG HYDROX/AL HYDROX/SIMETH 30 ML UDCUP PO PRN (20:39)
[2019-03-11] MEDS ORDERED: OLANZapine DISINTEGR 10 MG TAB PO PRN (20:39)
[2019-03-11] MEDS ORDERED: ACETAMINOPHEN 325 MG TAB PO PRN (20:39)
[2019-03-11] MEDS ORDERED: MAGNESIUM HYDROXIDE 30 ML UDCUP PO PRN (20:39)
[2019-03-11] MEDS: LORazepam 0.5 MG TAB PO PRN (22:13)
--- NOTE | 2019-03-12 07:10 | BAPA ---
[f rep st] ADMISSION PSYCHIATRIC ASSESSMENT DATE OF SERVICE: 03/12/2019 CHIEF COMPLAINT: "Got some bad news. My mom's passing away. I think she may have something wrong with her liver. I couldn't take it. I need to be here. I need to stay here." HISTORY OF PRESENT ILLNESS: From the [facility] evaluation dated 03/10/2019, the patient reported to the [facility] driver retraining instructor "last night I got bad news about my mom. She's passing away. I didn't get the full details, but she has liver issues. I couldn't take it. I ended up here. I want to stay another day. I think they should monitor me. " The patient reports history of anxiety, depression, bipolar disorder, and schizophrenia. The patient is currently a transient homeless living in local group home in [place], [place]. The patient arrived by EMS on M1 hold placed by [facility] after the patient attempted suicide by overdose, the patient was recently discharged from inpatient [facility] at [facility]. The patient was hospitalized from to 03/05/2019. The patient reported after being discharged, he did pretty well. 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 The patient reported he was taking his medications as prescribed. The patient reports after receiving the "bad news" about his mother, he just could not take it anymore. The patient would not provide any further details regarding the news he heard about his mother. When patient was admitted on 12/2018, at that time, patient was admitted due to being off his medications. At that time patient reported, "I have been off my medications. I'm in no condition to be on the streets, hearing voices." During the course of the patient's hospitalization, Zyprexa 10 mg p.o. at bedtime was started to target auditory hallucinations. The patient improved. No longer met criteria for inpatient psychiatric hospitalization and was discharged to homeless group home and to follow up at [facility]. PAST PSYCHIATRIC HISTORY: Patient describes a history of schizophrenia and bipolar disorder. The patient also describes history of tiago symptoms and auditory hallucinations. The patient reported taking Zyprexa 10 mg p.o. at bedtime after his recent hospitalization and reports medication was working well for his symptoms. The patient reports a history of 11 suicide attempts, 1st attempt at age 13 while at a residential adolescent program in [place]. The patient reportedly tied a bed sheet to the bars of the window and jumped out in an attempt to hang himself. Other attempts, patient describes jumping from high places, additional attempts to hang himself and walking into traffic. The patient's most recent attempt was by overdose after receiving news that his mom was passing away. Prior to the patient's previous hospitalization, patient's most recent attempt was while in [place], [place]. The patient attempted suicide in August of 2018, when he attempted to jump off a highway bridge. The patient reported while doing so, he landed on a beam under the bridge and was rescued by police. The patient reports history of prior psychiatric hospitalizations as 1st hospitalization at age 15 in [facility] in [place], [place]. The patient also reports several inpatient psychiatric hospitalizations at [facility]. The patient reportedly off his medications for 2 months prior to his admission on 03/01/2019. The patient did report taking his medications as prescribed prior to this admission. The patient describes medications were working well for his symptoms, notably auditory hallucinations. The patient reports prior convictions and incarceration in [place] for assault, aggravated assault, and aggravated assault of a chief program officer. The patient reportedly had been in [facility] 4 separate times from the ages of 18 to age 31. ALLERGIES: No known allergies. CURRENT MEDICATIONS: 1. Tylenol 650 mg p.o. q.4 hours p.r.n. 2. Ativan 0.5 to 1 mg p.o. q.6 hours p.r.n. 3. Maalox syrup 30 mL p.o. q.6 hours p.r.n. 4. Milk of Magnesia 30 mL p.o. daily p.r.n. 5. Nicorette 2 mg q.1 hour p.r.n. 6. Zyprexa Zydis 5 to 10 mg p.o. q.6 hours p.r.n. 7. Zyprexa Zydis 10 mg p.o. at bedtime. PAST MEDICAL/SURGICAL HISTORY: The patient reports a history of cirrhosis of the liver and hepatitis C. The patient reports no other medical or surgical history. SOCIAL HISTORY: The patient is single, has never been , and has no children. The patient is currently homeless and arrived in [place] by hitchhiking approximately 1 month ago after he was released from a [place] nursing home after 20 days. The patient at that time was incarcerated for speeding, suspected DUI, and refusing road breathalyzer test. The patient reports sexual orientation as heterosexual. Reports he is currently not sexually active. Patient reports no local support. The patient reports he did follow up at [facility] and was attending "classes" there after previous admission on 03/01/2019. The patient describes highest level of education as 4th grade and was in special education while in school. The patient was most recently employed washing [employer] and obtained this employment through contact at the [employer]. The patient denies being on SSDI. 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 The patient reports this is due to him either quitting or getting fired. The patient reports no history of duty. LEGAL HISTORY: The patient describes the legal history as prior convictions and incarceration in [place] for assault, aggravated assault, and other aggravated assault of a chief program officer. The patient reportedly has been incarcerated for separate times from the ages of 18 to 31. The patient reports his 1st incarceration was at age 18 for burglary and motor vehicle theft. The patient's most recent legal history was spending 20 days in [place] [facility] for being pulled over for speeding, suspected DUI, and refusing to provide a breathalyzer test. The patient acknowledged at the time of being pulled over he was under the influence of alcohol. The patient reports no jainism or spiritual practice that would impact his treatment. SUBSTANCE USE HISTORY: The patient reports history of using marijuana, but reports no use since his 20s. The patient also reports a history of huffing including gasoline and paint in his teen years. The patient reports history of LSD numerous times and a history of using cocaine, but reports he has not used LSD or cocaine for many years. The patient reports first trying meth in his mid 20s. The patient reportedly used methamphetamine 1 day prior to presenting to the emergency room at his most recent hospitalization on 03/01/2019. The patient reports he typically only uses meth on the weekends. FAMILY PSYCHIATRIC HISTORY: The patient reports a cousin with a history of alcohol and cocaine abuse and heroin addiction. Maternal cousin attempted suicide by gun. The patient reports no other family psychiatric history. LABS: 1. CBC noncontributory. 2. BMP noncontributory. 3. Liver function. AST elevated at 62, ALT elevated at 73, alkaline phosphatase elevated at 305. Albumin was low at 3. 4. Toxicology screen negative for all substances that were screened. 5. Ethyl alcohol on 03/10/2019, at time of presenting to the emergency room was 249. MENTAL STATUS EXAM: The patient is a well-nourished male looking stated chronological age. Attire is appropriate. Dress is hospital garb. Grooming status is appropriate, neat, and clean. Ambulation is independent. Gait is normal and coordinated. Posture is normal and relaxed. Eye contact is appropriate and adequate. Motor activity is appropriate with purposeful, organized, coordinated movements with no involuntary movements noted. Attitude is cooperative. The patient appears somewhat disinterested, distractible at times, and does not relate well to this interviewer. Language production is spontaneous. Rate is hesitant. Latency of response is prolonged. Articulation is clear. The patient reports mood as "anxious" with congruent affect. The patient's thought process is fairly linear and logical with no signs of formal thought disorder. The patient does not report current suicidal or homicidal thoughts, ideas, or plans. The patient reports no auditory or visual hallucinations. The patient does not report delusions. The patient does not appear to be attending to internal stimuli. The patient is oriented to person, place, time, and situation. The patient's attention and concentration are fair. The patient's insight and judgment are poor. The patient does not report undesirable side effects from current medications. DIAGNOSES: Based on the patient's history and current presentation, patient's diagnoses are: 1. Schizophrenia. 2. Homelessness. 3. Adjustment disorder with mixed disturbance of emotion and conduct. FORMULATION: The patient is a 48-year-old male single, most recently employed prior to this hospitalization. Prior to that, patient was unemployed. The patient is currently homeless and staying at the [place] homeless group home prior to this admission. The patient presented to the hospital by emergency medical services and is currently on an M1 hold due to being a danger to himself. The patient requires continued inpatient care because of recent suicidal ideation with attempt by overdose. The patient presents with problems of being overwhelmed due to hearing the news that his mother was passing away. The patient provided no specific details. The patient has a history of schizophrenia and has been taking his medications as prescribed, Zyprexa 10 mg p.o. at bedtime, and reports good response to this medication. The patient reports he is also tolerating the medication. The patient is a high suicide safety risk due to recent suicidal ideation with attempt by overdose. Protective factors while hospitalized include ongoing safety checks, active involvement in treatment, and support from our treatment team. Patient could benefit from inpatient hospitalization for safety, crisis stabilization, and medication evaluation. PLAN: 1. Medications: After reviewing options, risks, and benefits with the patient , the patient agrees to continue current med medications listed above. No other medication changes at this time as more time is needed to determine ongoing tolerability and efficacy. Plan is to continue to observe patient for response and side effects from medications, and ongoing monitoring and evaluation. 2. Review with patient informed consent and recommendations for psychotropic medication treatment listed below 3. Labs: no additional labs at this time 4. Therapy: continue milieu and group therapy 5. Further investigation including gathering information from patients relatives and review of past case records to inform treatment plan. 6. Safety/Wellness plan and follow-up outpatient appointments to be established prior to discharge. Next steps are for patient to meet with lawn care professional to plan a safe discharge plan and establish outpatient services for ongoing treatment. 7. Confer with inpatient treatment team regarding treatment plan. 8. Address psychosocial stressors by meeting with hospice care transitions coordinator to establish discharge plan including referrals for outpatient services. 9. Legal status: M1 10. Consider discharge this week if patient is in stable condition, safe, and has a safe discharge plan. ESTIMATED LENGTH OF STAY: 3-5 days PSYCHOTROPIC MEDICATION TREATMENT INFORMED CONSENT and RECOMMENDATIONS: Review nature of condition, diagnosis, and prognosis. Review nature and purpose of psychotropic medication treatment. Review type of psychotropic medications being ordered. Review risk and benefits of psychotropic medication treatment. Review probable length of time will need to take medications. Review risk and benefits of not undergoing psychotropic medication treatment. Review alternative treatments to psychotropic medications. Review psychotropic medications contraindications, drug-drug interactions, side effects, and importance of reporting any side effects to a psychiatric provider or nurse during inpatient hospitalization, and upon discharge to patients psychiatric outpatient provider, primary care provider, or other health daycare provider. Review importance of asking a nurse, psychiatric provider, or primary care provider any questions or problems concerning the psychotropic medications. Verify patient understands the information that has been provided, and understands, accepts, and agrees to psychotropic medications. Review patients safety plan and importance of patient to communicate to staff while hospitalized if patient is ever a danger to self/others, or unable to care for self, and upon discharge, the importance for patient to contact [facility] or [facility], or go to the nearest emergency room, if patient is ever a danger to self/others, or unable to care for self. Recommend that upon discharge patient establish medication management treatment with a psychiatric provider, establishes routine therapy appointments, and follow-up with primary care provider. Verify patient understands and agrees to these recommendations. /[id number]/MODL MTDD
--- NOTE | 2019-03-12 08:47 | ASMTBHMTP ---
Master Treatment Plan Master Treatment Plan Answers: Depressed Mood with for: Suicidal Ideation Date: 03/12/2019 Diagnosis on Admission: Major Depressive disorder Expected length of stay: 3-5 Reason for admission: Notes: The pt. is currently a transient homeless living in local pen[facility]entiary in [facility] The pt. arrived by EMS on M1 hold after the pt. attempted suicide by overdose. Patient's stated presenting problems: Notes: "I took a bunch of Xanax and I smoked a bunch of wax. I was depressed". Patient's goals for treatment: Notes: "I want to get back on my meds. Get some rest and get to the bottom of why I want to commit suicide. Patient's strengths: Notes: "I don't know". Identify supports outside of hospital: Notes: "No support. If I had some support I would be OK". Discharge criteria: Notes: SI will resolve and ct. will have a plan to safely manage recurrent SI. Initial disposition plan/considerations: Notes: Mood will stabilize and ct. will be able to safely discharge with follow up appointments. Master Treatment Plan Required Signatures Psychiatrist signature: Answers: Psychiatrist: RN on-shift signature: Answers: RN: Patient signature: Answers: Patient: Date Signed: 03/12/2019 08:46 AM Electronically Signed By:Rossana Richardson
--- NOTE | 2019-03-12 09:49 | PDMN ---
Medical Necessity Medical necessity: [id number] Schizophrenia Spectrum Disorders, Adult: Inpatient Care, 6 days: 48 yo w/ schizophrenia, adjustment d/o w/ mixed disturbance of emotion and conduct and homelessness on M1 hold for intentional OD, admit IP status to [facility] unit.
[2019-03-12] MEDS: OLANZapine DISINTEGR 10 MG TAB PO SCH (22:28)
[2019-03-12] MEDS: LORazepam 0.5 MG TAB PO PRN (22:28)
--- NOTE | 2019-03-13 14:06 | ASMTCMCOM ---
CM Note CM Note Notes: Pt. reports feeling "not good, sleepy". Pt. stated he is "not on the right meds yet". Pt. reports it "took a while" for him to fall asleep. Pt. reports getting enough to eat and attending "every one" of the groups. Pt. reports not being on the right medications. Pt. denies having any issues while on the unit. Pt. denied SI, HI, AVH and paranoia. Pt. stated he is planning on returning to the prison and work upon discharge. CC asked pt. to call [facility] liaison Chaparrita, pt. made the call right then. Pt. presents as alert, calm, slightly distracted, fair to poor eye contact, and cooperative. Staff report pt. sleeping 7 hours and being medication compliant. Pt.'s follow up to be rescheduled, pt. to potentially discharge Tuesday. Date Signed: 03/13/2019 02:05 PM Electronically Signed By:Izabel Pierson
--- NOTE | 2019-03-13 16:32 | SOAPPROG ---
SOAP Progress Note Assessment/Plan: Assessment: Plan: 03/13/19 16:33 Psychosis: Appears stable. Will CCM. Finalize d/c plan tomorrow. Subjective: Pt seen, discussed with staff, chart reviewed. He refused to come to Treatment Team meeting this morning. He was not interested in talking to me either, stating he was "too tired." He is agreeable to staying until at least tomorrow. Compliant with meds. Attends some groups. Eating well. Grooming is marginal. MSE: Calm, guarded. Affect is blunted, stable, approp. Mood is "bad." TP is abbreviated, generally linear. TC reveals no mention of psychosis. Denies SI/ HI/. Objective: Vital Signs Temp Pulse Resp BP Pulse Ox 36.8 C 82 14 114/77 92 03/13/19 06:00 03/13/19 06:00 03/13/19 06:00 03/13/19 06:00 03/13/19 06:00 - Time Spent With Patient Time Spent With Patient: 15" ICD10 Worksheet Patient Problems: Problems Problem Status Onset Alcohol intoxication Acute Chest pain Acute Deliberate medication overdose Acute Suicidal ideation Acute Schizophrenia Chronic
[2019-03-13] MEDS: OLANZapine DISINTEGR 10 MG TAB PO SCH (19:54)
[2019-03-14 06:26] VITALS: BP 109/71
--- NOTE | 2019-03-14 09:52 | BDS ---
[f rep st] BEHAVIORAL HEALTH DISCHARGE SUMMARY REASON FOR ADMISSION: From the [facility] evaluation dated 03/11/2019, the patient reported he received bad news about his mom, reported he heard that his mom was passing away. The patient stated he did not get the full details, but she has "liver issues." The patient reported he no longer could take it and it was reported by EMS, as patient arrived to the ED by EMS, that he told them he overdosed on medications due to severe depression due to the of his mother. The patient reported to EMS that he overdosed in an attempt to kill himself. ADMITTING DIAGNOSES: 1. Schizophrenia. 2. Homelessness. 3. Adjustment disorder with mixed disturbance of emotions and conduct. ADMISSION PHYSICAL EXAM: Patient was seen on 03/10/2019, for history and physical for medical clearance for inpatient psychiatric hospitalization and treatment. The patient was medically cleared for inpatient psychiatric hospitalization and treatment. For further details, please refer to history and physical dated 03/10/2019. ADMISSION LABS: 1. CBC noncontributory. 2. BMP noncontributory. Glucose was elevated at 160 on 03/11/2019. 3. Calcium was low at 7.8. 4. Liver function within normal limits except AST was elevated at 62, ALT was elevated at 73, alkaline phosphatase was elevated at 305, albumin low at 3.4. 5. Toxicology screen was negative for all substances that were screened. Ethyl alcohol level on 03/10/2019, at time of presenting to the emergency room was 249. These labs were completed at the emergency room prior to his admission at [facility] psychiatric unit and these labs were reviewed prior to his admission. MAJOR PROCEDURES OR TESTS: None. HOSPITAL COURSE: The most prominent symptoms and behaviors while the patient was here were reports of severe depression. Treatment modalities utilized were milieu and group therapy. Zyprexa 10 mg p.o. at bedtime was continued and was tolerated with no report of side effects and with good response. Patient has improved considerably with no signs of psychiatric symptoms and no psychiatric symptoms expressed. Patient reports he has improved since admission, states to be in stable condition, feels safe to discharge, and he contracts for safety. Patients response to treatment was good. There were no adverse or unexpected results of treatment. The patient was safe throughout stay, active in treatment , engaged in groups, and was appropriate with staff. Patient met with treatment team prior to discharge to assess readiness to discharge and review discharge plan. The treatment team consensus is the patient in stable condition , has a safe discharge plan, and is ready to discharge today. CONDITION AT DISCHARGE: Patient is in stable condition and is no longer a danger to self or others, and is not gravely disabled due to mental illness. Patient is no longer in need of inpatient level of care, and can be safely and effectively treated within the community. The patients level of risk at time of discharge is low. MSE: The patient is casually dressed and with good hygiene , and looks stated age. Patient is sitting, posture is upright, and position is relaxed. Patient appears awake, alert, and responds appropriately and reasonably during interview. Patient is engaged, relates well to interviewer, and emotional facial expression is appropriate to situation and changes appropriately with topic. Patient is cooperative, makes comfortable eye contact , and movements are voluntary, deliberate, coordinated, and smooth and even with no inappropriate movements. Patient makes laryngeal sounds effortlessly and shares conversation appropriately; pace of conversation is appropriate, and stream of talking is fluent; articulation is clear and understandable; word choice is effortless and appropriate for education level; completes sentences, occasionally pausing to think; rate and volume are appropriate for interview and setting. Patient reports mood as euthymic. Patients affect is stable with full variable range, congruent with mood, and appropriate to speech and circumstances. Patient has linear and logical thinking, with no loose associations, tangential thought, thought blocking, concrete thinking, or any other signs of formal thought disorder. Patient denies suicidal and homicidal ideation, and denies hallucinations and delusions. Patient appears to be a reliable historian with sound judgement and good insight into current condition. Patient has no apparent dysfunction in recent or remote memory noted , and no evidence of gross cognitive dysfunction noted at any point during the interview. DISCHARGE DIAGNOSES: 1. Schizophrenia. 2. Homelessness. 3. Adjustment disorder with mixed disturbance of emotions and conduct. CURRENT MEDICATIONS: After reviewing options risks and benefits with the patient. The patient agrees to continue Zyprexa 10 mg p.o. at bedtime. The patient reports that he lost his prescription that he was given after discharge from the last hospitalization and requests a new prescription. A prescription for 30 days is provided. The prescription is reviewed with the patient at time of discharge to ensure accuracy and patient understanding. DISPOSITION: The patient left the hospital independently and voluntarily with plans to go to the homeless retirement in [place], [place], and follow up at [facility] for ongoing treatment including medication management and therapy. FOLLOWUP: guidance services coordinator reports the appropriate outpatient follow-up services have been established and outpatient appointments have been scheduled. The patient received written instructions with times and dates of outpatient follow-up appointments. The following follow-up recommendations were provided to the patient at discharge: Continue psychotropic medications as prescribed and attend appointments as scheduled. Report any side effects to a psychiatric outpatient provider, a primary care provider, or other health home care administrator. Address any questions or problems concerning the psychotropic medications with a psychiatric outpatient provider, a primary care provider, or other health home care administrator. Contact [facility] or [facility], or go to the nearest emergency room, if you are ever a danger to yourself/others, or unable to care for yourself. As soon as possible, establish a routine medication management treatment with a psychiatric provider, establish routine therapy appointments, and follow-up with a primary care provider. LEGAL COURSE: Patient was admitted on an M1 hold for involuntary inpatient psychiatric hospitalization and treatment. The patient discharged today independently and voluntarily. ATTITUDE AT TIME OF DISCHARGE: The patients attitude was positive at time of discharge, and patient reports looking forward to discharging today. The patient reports he feels safe to discharge, is no longer a danger to himself or others, is in stable condition, and contracts for safety. Patient states he will continue medications as prescribed, and establish medication management treatment with an outpatient provider after discharge. Patient reports he understands the information that has been provided to him, and he understands, accepts, and agrees to psychotropic medications. Patient describes internal protective factors as the coping skills he has learned while hospitalized here, and he plans to continue to practice these coping skills after discharge. LABS AND RADIOLOGY STUDIES: There were no pending labs or studies at time of discharge. ADVANCE DIRECTIVES: There were no advance directives on file, and patient was full code during this hospitalization. The following psychotropic medication treatment informed consent and recommendations were provided to the patient at time of discharge. Patient reports he understands, accepts, and agrees to the information that has been provided. PSYCHOTROPIC MEDICATION TREATMENT INFORMED CONSENT and RECOMMENDATIONS: Review nature of condition, diagnosis, and prognosis. Review nature and purpose of psychotropic medication treatment. Review type of psychotropic medications being prescribed. Review risk and benefits of psychotropic medication treatment. Review probable length of time will need to take medications. Review risk and benefits of not undergoing psychotropic medication treatment. Review alternative treatments to psychotropic medications. Review psychotropic medications contraindications, side effects, and importance of reporting any side effects to a psychiatric provider, primary care provider, or other health home care administrator. Review importance of asking a psychiatric provider or primary care provider any questions or problems concerning the psychotropic medications. Review safety plan and the importance to contact [facility] or [facility] , or go to the nearest emergency room, if ever a danger to yourself/others, or unable to care for yourself. Recommend upon discharge to establish routine medication management treatment with a psychiatric provider, establish routine therapy appointments, and follow-up with a primary care provider. Verify patient understands, accepts, and agrees to the information that has been provided. /[id number]/MODL MTDD
== END 2019-03-14 14:27 | disposition home or self-care (01) | DRG 750 ==
LOC: BBEH 20:00 → EEVIPCON 20:00 → BBEH 03-12 07:52
PROVIDERS: ADMIT Psychiatry & Neurology Psychiatry; ATTEND Registered Nurse
DX: F20.9 Schizophrenia, unspecified (principal); F43.25 Adjustment disorder with mixed disturbance of emotions and conduct; Z59.0 Homelessness

== ENCOUNTER 2019-03-23 22:11 | Emergency (ER) | payer MEDICAID, OTHER ==
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
[2019-03-23 23:12] LABS: PLATELET COUNT 155 10^3/uL (150-400)
[2019-03-24 09:03] VITALS: BP 135/80
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
--- NOTE | 2019-03-24 10:43 | ASMTTCLDSP ---
TLC Discharge Disposition Disposition: Answers: Discharge If Answers: Yes DISCHARGED: Patient/family given suicide hotline info & SAMHSA brochure? Disposition Notes: Notes: [facility] notified that pt is in ED and without medication. They have requested that pt be given a "bridge" of 3 Zyprexa and then told to contact P Tuesday so that medication needs can be discussed. Discharge Concerns/Recommendations: Notes: In consultation with [facility] ED physician,Dr Ortega and on-call psychiatrist,Dr Mejia , both concurred that Pt does not appear to meet 27-65 criteria requiring psychiatric hospitalization as Pt does not appear to be an imminent risk of harm to self/others due to a mental illness condition. Was patient given the Answers: Not applicable Inpatient Behavioral Health Prohibited Belongings List while in the ED? Psychiatrist vacating M1 Dr Philip, ED Physician Hold: Date and time M1 hold 03/24/2019 09:27 AM vacated (time format is hh:mm): Type of Hold: Answers: M1/72-hour Hold Hold initiated by: Answers: Police Date Signed: 03/24/2019 10:42 AM Electronically Signed By:Gayla Ortega. [facility]
== END 2019-03-24 09:55 | disposition home or self-care (01) ==
LOC: EDUNIT#
DX: Z91.14 Patient's other noncompliance with medication regimen (principal); F20.89 Other schizophrenia
CPT/HCPCS: 80305; G0480

== ENCOUNTER 2019-03-25 02:01 | Emergency (ER) | payer MEDICAID, OTHER ==
[2019-03-25] MEDS ORDERED: NS 1,000 ML IV ONE (02:05)
--- NOTE | 2019-03-25 02:09 | EDPHY ---
H & P Source: Patient, EMS - Medical/Surgical History Hx Asthma: No Hx Chronic Respiratory Disease: No Hx Diabetes: No Hx Cardiac Disease: No Hx Renal Disease: No Hx Cirrhosis: Yes Hx Alcoholism: Yes Hx HIV/AIDS: No Hx Splenectomy or Spleen Trauma: No Other PMH: Schizophrenia, homelessness,. Hep C, chronic pain - Social History Smoking Status: Former smoker Time Seen by Provider: 03/25/19 02:07 HPI/ROS: HPI CHIEF COMPLAINT: Suicidal ideation HISTORY OF PRESENT ILLNESS: Patient is a 48-year-old male he arrives to the emergency room by EMS after he called 911. States earlier tonight he took 4 Wellbutrin tabs. He also drink alcohol. States been feeling very depressed and hopeless. States he suicidal. States he want to go to sleep tonight. Arrives emergency room, cooperative but intoxicated with alcohol. He did mention to EMS that he had "muscle soreness in his chest". He denies chest pain. Other than alcohol he denies any other, ingestions. He states he had a pt of alcohol tonight. Also tells four Wellbutrin tabs. Past Medical History: Significant medical history for schizophrenia, bipolar disorder, depression, hepatitis-C Past Surgical History: No recent surgery Social History: Homeless, alcohol use. Family History: Noncontributory ROS REVIEW OF SYSTEMS: Limited due to alcohol intoxication. Exam Constitutional intoxicated, smells of alcohol, triage nursing summary reviewed , vital signs reviewed, awake/alert. Eyes normal conjunctivae and sclera, EOMI, PERRLA. HENT normal inspection, atraumatic, moist mucus membranes, no epistaxis, neck supple/ no meningismus, no raccoon eyes. Respiratory clear to auscultation bilaterally, normal breath sounds, no respiratory distress, no wheezing. Cardiovascular rate normal, regular rhythm, no murmur, no edema, distal pulses normal. Gastrointestinal soft, non-tender, no rebound, no guarding, normal bowel sounds, no distension, no pulsatile mass. Genitourinary no CVA tenderness. Musculoskeletal no midline vertebral tenderness, full range of motion, no calf swelling, no tenderness of extremities, no meningismus, good pulses, neurovascularly intact. Skin pink, warm, & dry, no rash, skin atraumatic. Neurologic awake, alert and oriented x 3, AAOx3, moves all 4 extremities equally, motor intact, sensory intact, CN II-XII intact, normal cerebellar, normal vision, normal speech. Psychiatric suicidal, depressed. Heme/Lymph/Immune no lymphadenopathy. Differential Diagnosis: Includes but is not limited to in a particular order acute alcohol intoxication, drug intoxication, dehydration, Wellbutrin overdose Medical Decision Making: Plan for this patient IV establishment residential monitor , labs, blood work, EKG, troponin, M1 hold. Re-evaluation: 2:00 a.m. Patient placed on M1 hold. EKG interpretation by me on record in [employer] system. Impression time of EKG 2:09 a.m., sinus rhythm rate of 81, normal intervals. No signs of acute ischemia no signs of cardiac arrhythmia. Troponin 0.00 Serum alcohol level 75. ED x-ray chest one view negative for acute cardiopulmonary disease. 0402: Patient resting comfortably no acute distress. Sleeping. On M1 hold needs mental health evaluation this morning. Signed over at 7:[address] Sebastian. ([facility]) Constitutional: Initial Vital Signs Temperature (C) 36.5 C 03/25/19 02:05 Heart Rate 81 03/25/19 02:05 Respiratory Rate 20 03/25/19 02:05 Blood Pressure 115/71 03/25/19 02:05 O2 Sat (%) 95 03/25/19 02:05 O2 Delivery Mode Room Air Allergies/Adverse Reactions: No Known Allergies Allergy (Verified 03/01/19 13:58) Home Medications: Medication Instructions Recorded OLANZapine [Zyprexa] 10 mg PO HS 30 Days #30 tablet 03/14/19 OLANZapine [Zyprexa] 10 mg PO Q12 PRN #2 tablet 03/25/19 Wellbutrin 03/25/19 Medical Decision Making ED Course/Re-evaluation: 7am: I assumed care of this patient at shift change. He is on an M1 hold, mental health evaluation pending. Pt seen by [facility], felt appropriate for outpt treatment of depression. I agree with this assessment. Pt denies SI/HI and has a safety plan in place. ( Luna Sebastian) Differential Diagnosis: Differential diagnosis includes though it is not limited to suicidal ideation, overdose, acute psychosis, self-injury, alcohol withdrawal. (Luna Sebastian) - Data Points Laboratory Results: Laboratory Results 03/25/19 02:00 03/25/19 02:00 Medications Given: Discontinued Medications Sodium Chloride (Ns) 1,000 mls @ 0 mls/hr IV EDNOW ONE; Wide Open PRN Reason: Protocol Stop: 03/25/19 02:06 Last Admin: 03/25/19 02:12 Dose: 1,000 mls Point of Care Test Results: Chemistry 03/25/19 02:13 POC Troponin I 0.00 ng/mL ng/mL (0.00-0.08) Departure - Departure Disposition: Home, Routine, Self-Care Clinical Impression: Suicidal ideation Alcohol intoxication Qualifiers: Complication of substance-induced condition: uncomplicated Qualified Code(s): F10.920 - Alcohol use, unspecified with intoxication, uncomplicated Depression Qualifiers: Depression Type: major depressive disorder Major depression recurrence: recurrent Active/Remission status: currently active Major depression episode severity: moderate Qualified Code(s): F33.1 - Major depressive disorder, recurrent, moderate Condition: Fair Instructions: Depression (ED), Alcohol Intoxication (ED) Referrals: [facility],. [Clinic] - As per Instructions Prescriptions: OLANZapine [Zyprexa] 10 mg PO Q12 PRN #2 tablet PRN Reason: Anxiety
[2019-03-25 02:20] LABS: PLATELET COUNT 122 10^3/uL (150-400)
[2019-03-25 11:22] VITALS: BP 119/79
--- NOTE | 2019-03-27 06:32 | CPEKG ---
Test Reason : OPEN Blood Pressure : / mmHG Vent. Rate : 081 BPM Atrial Rate : 082 BPM P-R Int : 140 ms QRS Dur : 101 ms QT Int : 397 ms P-R-T Axes : 023 017 044 degrees QTc Int : 461 ms Sinus rhythm Confirmed by Jerrod Martin ([id number]) on 03/27/2019 6:31:11 AM Referred By: Jerrod Martin Confirmed By:Jerrod Martin
== END 2019-03-25 11:43 | disposition home or self-care (01) ==
LOC: EDUNIT#
DX: F10.920 Alcohol use, unspecified with intoxication, uncomplicated (principal); F33.1 Major depressive disorder, recurrent, moderate; E86.9 Volume depletion, unspecified; Z59.0 Homelessness
CPT/HCPCS: 80305; 84484-ER; G0480

== ENCOUNTER 2019-04-02 21:06 | Emergency (ER) | payer MEDICAID | END 2019-04-03 15:15 | disposition home or self-care (01) ==

== ENCOUNTER 2019-04-10 21:24 | Emergency (ER) | payer MEDICAID | END 2019-04-10 22:39 | disposition home or self-care (01) ==

== ENCOUNTER 2019-04-22 21:24 | Emergency (ER) | payer MEDICAID | END 2019-04-23 10:18 | disposition home or self-care (01) ==